=== PATIENT | male | born 1995 | race Caucasian/White ===

== ENCOUNTER → 2018-02-25 | Emergency (ER) | payer OTHER ==
[~2018-02-25] VITALS: Ht 152.4 cm; Wt 72.6 kg
[~2018-02-25] MED LIST: KETO10TA2 PO; NAPROXEN250 MG PO
== END | disposition home or self-care (01) ==
LOC: ER 22:17
DX: S30.22XA Contusion of scrotum and testes, initial encounter (principal); W22.8XXA Striking against or struck by other objects, initial encounter; Y93.89 Activity, other specified; Y92.89 Other specified places as the place of occurrence of the external cause; Y99.8 Other external cause status

== ENCOUNTER → 2018-12-19 | Emergency (ER) | payer OTHER ==
[~2018-12-19] VITALS: Ht 170.2 cm; Wt 63.5 kg
[~2018-12-19] MED LIST changes: +INTESTINEX680 M1 PO; +LEVSIN/SL0.125 MG SL; +PEPCID AC20 MG PO
== END | disposition home or self-care (01) ==
LOC: ER 23:09
DX: K52.9 Noninfective gastroenteritis and colitis, unspecified (principal); E86.0 Dehydration